=== PATIENT | male | born 1965 | race Caucasian/White ===

== ENCOUNTER 2020-04-17 09:38 | Emergency (ER) | payer OTHER ==
[2020-04-17] MEDS ORDERED: FLUORESCEIN NA 1 EA STRIP ONE (09:44)
[2020-04-17] MEDS ORDERED: TETRACAINE 0.5% OPHTH SOLN 2 ML BOTTLE ONE (09:44)
[2020-04-17 09:47] VITALS: BP 137/84; PULSE 69; TEMP 98.6; BMI 21.9
[2020-04-17] MEDS ORDERED: FLUORESCEIN NA 1 EA STRIP OD ONE (10:58)
[2020-04-17] MEDS ORDERED: TETRACAINE 0.5% OPHTH SOLN 2 ML BOTTLE OD ONE (10:59)
== END 2020-04-17 10:30 | disposition home or self-care (01) ==
LOC: FER 09:38
DX: S05.01XA Injury of conjunctiva and corneal abrasion without foreign body, right eye, initial encounter (principal)
CPT/HCPCS: 99283-25